=== PATIENT | male | born 1945 | race Hispanic/Latino ===

== ENCOUNTER 2018-02-04 16:22 | Emergency (ER) | payer OTHER, MEDICARE ==
[2018-02-04 16:29] VITALS: RESP 18; TEMP 98.3; BMI 24.3
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
[2018-02-04 19:55] VITALS: BP 144/76; PULSE 62; O2SAT 100
== END 2018-02-04 19:56 | disposition home or self-care (01) ==
LOC: ED 16:22
DX: S70.11XA Contusion of right thigh, initial encounter (principal); V49.49XA Driver injured in collision with other motor vehicles in traffic accident, initial encounter; Y92.410 Unspecified street and highway as the place of occurrence of the external cause